=== PATIENT | female | born 1945 | race Caucasian/White ===

== ENCOUNTER 2024-01-12 07:30 | Inpatient (IN) ==
[2024-01-17] MEDS ORDERED: Ondansetron 4 mg VIAL 2 MG/ML 2 ml VIAL IV PRN (09:50)
[2024-01-17] MEDS ORDERED: Naloxone 0.4 mg VIAL 0.4 mg/ml 1 ml VIAL IV PRN (09:50)
[2024-01-18] MEDS ORDERED: ceFAZolin 2 GM in NS PREMIX 2 GM/100 ML BAG IVPB ONE (06:38)
[2024-01-18] MEDS ORDERED: Sevoflurane BOTTLE ONE (06:40)
[2024-01-18] MEDS ORDERED: Propofol 10 MG/ML 20 ML BTL ONE (06:42)
[2024-01-18] MEDS ORDERED: Rocuronium 50 mg VIAL 10 mg/ml 5 ml VIAL (50 mg) ONE ×2 (06:43→08:46)
[2024-01-18] MEDS ORDERED: Dexamethasone IV 4 MG/ML VIAL 1 ml VIAL ONE (06:45)
[2024-01-18] MEDS ORDERED: Lidocaine 2% PF 5 ML VIAL ONE (06:45)
[2024-01-18] MEDS ORDERED: Ondansetron 4 mg VIAL 2 MG/ML 2 ml VIAL ONE (06:45)
[2024-01-18] MEDS ORDERED: fentaNYL 100 mcg/2 ml 50 MCG/ML VIAL ONE ×3 (06:47→12:45)
[2024-01-18] MEDS ORDERED: Phenylephrine IV 10 MG/ML 1 ml VIAL ONE ×2 (06:48→08:26)
[2024-01-18] MEDS ORDERED: Bupivacaine 0.25% SDV 30 ML ONE (06:51)
[2024-01-18] MEDS ORDERED: Midazolam 2 mg/2 ml VIAL 1 mg/ml 2 ml VIAL (2 mg) ONE (07:12)
[2024-01-18 07:36] LABS: Rapid COVID-19 Molecular Undetected (Undetected)
[2024-01-18] MEDS ORDERED: Ondansetron 4 mg VIAL 2 MG/ML 2 ml VIAL IV PRN (07:36)
[2024-01-18] MEDS ORDERED: HYDROmorphone 0.5 MG/0.5 ML SYRINGE ONE ×2 (08:47→09:59)
[2024-01-18] MEDS ORDERED: Glycopyrrolate IV 0.2 MG/ML 1 ML VIAL ONE (10:04)
[2024-01-18] MEDS: fentaNYL 100 mcg/2 ml 50 MCG/ML VIAL IV PRN (11:24)
[2024-01-18 11:46] LABS: ABS Lymphocytes 0.6 10^3/uL (1.0-4.8); ABS Monocytes 0.1 10^3/uL (0.0-0.9); ABS Neutrophils 6.2 10^3/uL (1.5-7.6); Eosinophil % 0.1 %; Hemoglobin 11.3 g/dL (11.5-14.3); Mean Corpuscular Hemoglobin 31.2 pg (27-33); Mean Corpuscular Hgb Conc 33.2 g/dL (31-36); Mean Corpuscular Volume 93.9 fL (80-97); Mean Platelet Volume 8.6 fL (7.5-11.2); Platelet Count 165 10^3/uL (150-450); Red Blood Count 3.63 10^6/uL (3.63-4.92); Red Cell Distribution Width 13.9 % (12-17); White Blood Count 6.9 10^3/uL (3.8-11.8)
[2024-01-18 12:01] LABS: Calcium 8.6 mg/dL (8.6-10.3); Creatinine, Serum 0.83 mg/dL (0.51-0.95); Potassium 4.5 mmol/L (3.5-5.0); eGFR CKD-EPI 71.7 (>60)
[2024-01-18] MEDS: NS 0.9% 1000 ml BAG 1,000 ML IV SCH (14:50)
[2024-01-18] MEDS: Magnesium Hydroxide LIQ 30 ML UDC PO SCH (14:50)
[2024-01-18] MEDS: Buffered Lidocaine 1% SYRIN 1 ml INTRADERM ONE (14:53)
[2024-01-18 16:10] LABS: ABS Lymphocytes 0.6 10^3/uL (1.0-4.8); ABS Monocytes 0.3 10^3/uL (0.0-0.9); ABS Neutrophils 6.4 10^3/uL (1.5-7.6); Hematocrit 35.1 % (35-45); Hemoglobin 11.8 g/dL (11.5-14.3); Lymphocyte % 7.9 %; Mean Corpuscular Hemoglobin 31.6 pg (27-33); Mean Corpuscular Hgb Conc 33.7 g/dL (31-36); Mean Corpuscular Volume 93.5 fL (80-97); Mean Platelet Volume 8.6 fL (7.5-11.2); Platelet Count 162 10^3/uL (150-450); Red Blood Count 3.75 10^6/uL (3.63-4.92); White Blood Count 7.3 10^3/uL (3.8-11.8)
[2024-01-18] MEDS: Lactated Ringers 1000 ml BAG 1,000 ML IV SCH (17:03)
[2024-01-18 17:25] LABS: Calcium 8.7 mg/dL (8.6-10.3); Creatinine, Serum 0.92 mg/dL (0.51-0.95); Potassium 4.6 mmol/L (3.5-5.0); eGFR CKD-EPI 63.3 (>60)
[2024-01-18] MEDS: Morphine 2 MG/ML SYRINGE IV PRN (19:27)
[2024-01-19 08:36] LABS: ABS Lymphocytes 1.5 10^3/uL (1.0-4.8); ABS Monocytes 0.6 10^3/uL (0.0-0.9); ABS Nucleated RBC 0.01 10^3/ul; Eosinophil % 0.5 %; Hematocrit 29.8 % (35-45); Hemoglobin 10.1 g/dL (11.5-14.3); Lymphocyte % 20.7 %; Mean Corpuscular Hemoglobin 31.5 pg (27-33); Mean Corpuscular Hgb Conc 33.7 g/dL (31-36); Mean Corpuscular Volume 93.6 fL (80-97); Mean Platelet Volume 8.9 fL (7.5-11.2); Nucleated Red Blood Cells % 0.1 %/100WBC (0.0-0.8); Platelet Count 162 10^3/uL (150-450); Red Blood Count 3.19 10^6/uL (3.63-4.92); White Blood Count 7.2 10^3/uL (3.8-11.8)
[2024-01-19 08:50] LABS: Calcium 7.9 mg/dL (8.6-10.3); Creatinine, Serum 1.06 mg/dL (0.51-0.95); Potassium 4.5 mmol/L (3.5-5.0); eGFR CKD-EPI 53.4 (>60)
[2024-01-19 10:28] VITALS: BP 104/55
[2024-01-22] MEDS ORDERED: BUPIVACAINE **LIPOSOME/PF 13.3 MG/ML (266MG/ 20ML) VIAL (RESTRICTED) INFIL SCH
== END 2024-01-19 13:15 | disposition home or self-care (01) | DRG 657 ==
LOC: INTOOBSV 01-18 06:13 → OBSVTOIN 01-18 06:13 → AA 01-18 06:13 → SSU 01-18 07:36
PROVIDERS: ADMIT Urology; ATTEND Urology